=== PATIENT | female | born 1980 | race Caucasian/White ===

== ENCOUNTER 2021-09-24 08:58 | Outpatient (CLI) | payer BC ==
[2021-09-24 13:08] LABS: Estimated GFR-MDRD - POC Greater than 90
== END 2021-09-24 08:59 | disposition home or self-care (01) ==
LOC: CSHCT 08:58
PROVIDERS: ATTEND Internal Medicine Hematology & Oncology
DX: C50.412 Malignant neoplasm of upper-outer quadrant of left female breast (principal); N85.00 Endometrial hyperplasia, unspecified; N83.8 Other noninflammatory disorders of ovary, fallopian tube and broad ligament
CPT/HCPCS: 70470; 71260; 74177; 82565

== ENCOUNTER 2024-05-23 10:40 | Observation (INO) | payer BC ==
[2024-05-22 08:23] VITALS: BMI 32.8
[2024-05-22 09:14] LABS: Hematocrit 34.9 % (34.9-44.5); Hemoglobin 11.3 g/dL (12.0-15.5); Mean Corpuscular HGB CONC 32.4 g/dL (32.0-36.0); Mean Corpuscular Hemoglobin 28.4 pg (27.0-33.0); Mean Corpuscular Volume 87.7 fL (81.6-98.3); Mean Platelet Volume 10.5 fL (7.4-10.4); Platelet Count 292 10x3/uL (150-450); RBC Distribution Width 13.2 % (11.5-14.5); Red Blood Cell (RBC) Count 3.98 10x6/uL (3.90-5.03); White Blood Cell (WBC) Count 4.6 10x3/uL (3.5-10.5)
[2024-05-22 09:43] LABS: BHCG - Serum Negative (NEGATIVE); Pregs Control Background? CLEAR/WHITE (CLR/WHITE); Pregs Control Bar Appear? YES (CONTROL BAR)
[2024-05-22 09:56] LABS: Anion Gap 15 mmol/L (10-20); BUN (Urea Nitrogen) 9 mg/dL (7.0-18.7); Calc. Creatinine Clearance 0 mL/min (70-130); Calcium 9.1 mg/dL (7.8-10.44); Carbon Dioxide 23 mmol/L (22-29); Chloride 109 mmol/L (98-107); Estimated GFR 103; Glucose 92 mg/dL (70-105); Potassium 4.1 mmol/L (3.5-5.1); Sodium 143 mmol/L (136-145)
[2024-05-23] MEDS ORDERED: CeleCOXIB 100 MG CAP ONE (10:58)
[2024-05-23] MEDS ORDERED: Gabapentin 300 MG CAP ONE (10:59)
[2024-05-23] MEDS ORDERED: Famotidine/PF 20 mg/2ml Vial ONE (10:59)
[2024-05-23] MEDS ORDERED: PROPOFOL 20 ML ONE ×2 (15:09→17:43)
[2024-05-23] MEDS ORDERED: Fentanyl 250 MCG/5 ML VIAL ONE (15:09)
[2024-05-23] MEDS ORDERED: Bupivacaine HCl 0.5%/Epinephrine 1:200,000/PF 30 ml Vial ONE (15:09)
[2024-05-23] MEDS ORDERED: Sevoflurane 250 ML INH ANEST BOTTLE ONE (15:10)
[2024-05-23] MEDS ORDERED: Rocuronium Bromide 10 MG/ML (10ML VIAL) ONE (15:12)
[2024-05-23] MEDS ORDERED: Lidocaine 1% PF 5 ML VIAL ONE (15:12)
[2024-05-23] MEDS ORDERED: CEFAZOLIN 2 GM VIAL ONE (15:26)
[2024-05-23] MEDS ORDERED: Dexamethasone 4 mg/ml Vial ONE (15:55)
[2024-05-23] MEDS ORDERED: Ondansetron PF 4 MG/2 ML Vial ONE ×2 (15:55→19:29)
[2024-05-23] MEDS ORDERED: Dexmedetomidine 200 MCG/2 ML VIAL ONE (15:57)
[2024-05-23] MEDS ORDERED: Glycopyrrolate 0.2 MG/ML 5 ML SYRINGE ONE (16:14)
[2024-05-23] MEDS ORDERED: Methylene Blue 50 MG/10 ML AMPUL ONE (17:19)
[2024-05-23] MEDS ORDERED: ePHEDrine Sulfate 50 MG/10 ML VIAL ONE (17:33)
[2024-05-23] MEDS ORDERED: Meperidine HCl/PF 25 MG (1 mL) VIAL ONE (18:12)
[2024-05-23] MEDS ORDERED: fentaNYL 50 mcg/mL 1 mL Vial ONE ×2 (18:14→18:25)
[2024-05-23] MEDS ORDERED: HYDROcodone/Acetaminophen 5/325 mg Tablet ONE (18:46)
[2024-05-23] MEDS ORDERED: traMADol HCl 50 MG TAB PO PRN ×4 (23:30→23:37)
[2024-05-23] MEDS ORDERED: diphenhydrAMINE 25 MG CAP PO PRN (23:30)
[2024-05-23] MEDS ORDERED: Bisacodyl 10 MG SUPP PR PRN (23:30)
[2024-05-23] MEDS ORDERED: Zolpidem Tartrate 5 MG TAB PO PRN (23:30)
[2024-05-23] MEDS ORDERED: Simethicone Chewable 80 MG TAB PO PRN (23:30)
[2024-05-23] MEDS ORDERED: Acetaminophen 325 MG TAB PO PRN (23:30)
[2024-05-23] MEDS ORDERED: Ondansetron PF 4 MG/2 ML Vial IVP PRN (23:30)
[2024-05-23] MEDS ORDERED: Morphine 2 MG/ML VIAL SLOW IVP PRN (23:30)
[2024-05-23] MEDS ORDERED: Promethazine HCl 25 MG/ML VIAL IM PRN (23:30)
[2024-05-23] MEDS ORDERED: Ondansetron HCl/PF 8 MG, Admixture Fee 1 EACH in Sodium Chloride 0.9% 50 ML IVPB PRN (23:33)
[2024-05-24] MEDS: fentaNYL 50 mcg/mL 1 mL Vial SLOW IVP PRN (00:39)
[2024-05-24 03:41] LABS: Hematocrit 32.8 % (34.9-44.5); Hemoglobin 10.5 g/dL (12.0-15.5); Mean Corpuscular Hemoglobin 27.6 pg (27.0-33.0); Mean Corpuscular Volume 86.3 fL (81.6-98.3); Mean Platelet Volume 10.2 fL (7.4-10.4); Platelet Count 276 10x3/uL (150-450); RBC Distribution Width 13.2 % (11.5-14.5); White Blood Cell (WBC) Count 8.6 10x3/uL (3.5-10.5)
[2024-05-24] MEDS: Ibuprofen 800 MG TAB PO SCH (06:05)
[2024-05-24 08:04] VITALS: BP 119/74; TEMP 98.4
== END 2024-05-24 08:05 | disposition home or self-care (01) ==
LOC: CSHSDC 10:40 → CSHTELE 20:58
PROVIDERS: ADMIT Student in an Organized Health Care Education/Training Program; ATTEND Student in an Organized Health Care Education/Training Program
PROC: 0UT97ZZ Resection of Uterus, Via Natural or Artificial Opening (ICD-10-PCS; principal; 2024-05-24)
PROC: 0UT77ZZ Resection of Bilateral Fallopian Tubes, Via Natural or Artificial Opening (ICD-10-PCS; 2024-05-24)
PROC: 0UT27ZZ Resection of Bilateral Ovaries, Via Natural or Artificial Opening (ICD-10-PCS; 2024-05-24)
DX: D25.9 Leiomyoma of uterus, unspecified (principal); N72 Inflammatory disease of cervix uteri; N84.0 Polyp of corpus uteri; N80.00 Endometriosis of the uterus, unspecified; E03.9 Hypothyroidism, unspecified; F32.9 Major depressive disorder, single episode, unspecified; Z98.890 Other specified postprocedural states; Z79.890 Hormone replacement therapy; Z79.899 Other long term (current) drug therapy; Z85.3 Personal history of malignant neoplasm of breast
CPT/HCPCS: 36415; 80048; 84703; 85027; 86850; 86900; 86901; 88307; J1100; J2175; J2405; J2704; J3010; J3490

== ENCOUNTER 2025-04-27 11:37 | Outpatient (CLI) | payer BC | END 2025-04-27 11:38 | disposition home or self-care (01) | LOC: CSHULT 11:37 | PROVIDERS: ATTEND Radiology Radiation Oncology | DX: N63.10 Unspecified lump in the right breast, unspecified quadrant (principal) ==